=== PATIENT | female | born 1985 | race Caucasian/White ===

== ENCOUNTER 2020-07-21 14:24 | Outpatient (RCR) | payer OTHER, SELFPAY ==
[2020-07-21 14:55] LABS: Hematocrit 38.9 % (37.0-47.0); Hemoglobin 13.5 g/dL (12.0-15.0)
[2020-07-21 15:49] LABS: HIV 1/2 Ab P24 Ag Result Negative (Negative)
[2020-07-21 16:08] LABS: Glucose 1 Hour PP 50gm Dose 110 mg/dL
[2020-07-22] MEDS: RHO(D) IMMUNE GLOBULIN 300 MCG SYRINGE IM (12:43)
[2020-07-24 11:55] LABS: Rapid Plasma Reagin Non-Reactive (NonReactive)
== END 2020-10-19 23:59 | disposition home or self-care (01) ==
LOC: ANHLAB 14:24
PROVIDERS: Visit Provider Obstetrics & Gynecology
DX: Z29.13 Encounter for prophylactic Rho(D) immune globulin (principal); Z11.4 Encounter for screening for human immunodeficiency virus [HIV]; O36.0130 Maternal care for anti-D [Rh] antibodies, third trimester, not applicable or unspecified; Z3A.00 Weeks of gestation of pregnancy not specified
CPT/HCPCS: 36415; 82947; 85014; 85018; 85461; 86592; 86703; 90384; 96372; G0432; J2790

== ENCOUNTER 2020-09-28 01:18 | Inpatient (IN) | payer OTHER, SELFPAY ==
[2020-09-28] VITALS (34 sets, daily range): BP systolic 94–130; BP diastolic 49–96; PULSE 39–265; RESP 16–18; TEMP 36.7–37.2; O2SAT 88–100; BMI 33.9
--- OUTSIDE RECORDS SUMMARY | 2020-09-28 01:36 | XMS_ITS ---
:1985 Author Care Team Providers Name Role Phone Rogelio Conklin Primary Care Provider Unavailable Allergies Code Code System Name Reaction Severity Status Onset NKDA ? Medications Name Status Start Date Stop Date ? ? Afluria Qd (36 mos up)(PF)60 mcg (15 mcg x4)/0.5 mL IM s yringe Active ? Not available ADMINISTER 0.5ML IN THE MUSCLE DIRECTED Marianela 0.35 mg tablet Completed 06/14/2019 09/20/2020 take 1 tablet by oral route every day Macrobid 100 mg capsule Completed 11/23/2018 12/11/19 19 take 1 capsule by oral route every 12 hours with food Metrogel Vaginal 0.75 % Completed 11/09/2018 12/11/19 19 insert 1 applicatorful by vaginal route every night at bedtime for 5 nights Mirena 20 mcg/24 hours (6 yrs) Completed 09/04/2017 1 11/17/2016 52 mg intrauterine device Active ? Not available Problems Name Status Onset Date Source ? Screening for Malignant Neoplasm of Unknown 02/06/2012 History Cervix Removal of Intrauterine Device Unknown 04/08/2012 H istory Insertion of Intrauterine Contraceptive Unknown 04/09/20 12 History Device Specialized Medical Examination Unknown 02/16/2013 History Overweight Active 05/05/2014 History Body Mass Index 30+ - Obesity Active 11/27/2015 Hi story Human Papillomavirus Deoxyribonucleic Active 11/27/2015 History Acid Test Positive, Low Risk on Cervical Specimen SNOMED CT Concept Unknown 09/04/2017 History
--- OUTSIDE RECORDS SUMMARY | 2020-09-28 01:36 | XMS_ITS | Encounter Summary ---
:1985 Author Reason for Visit OB visit Assessment and Plan 1. Routine care Discussion Note: None recorded.Patient educational handouts: No information available. Plan of Care Reminders Provider Appointments Ob Routine 10/05/2020 Kashif Mercado 4:45PM MD [facility] ? Well on or around Alona robertson, Woman-est 02/13/2021 [facility] Lab None ? ? recorded. Referral None ? ? recorded. Procedures None ? ? recorded. Surgeries None ? ? recorded. Imaging None ? ? recorded. Medications Name Start Date ? ? Afluria Qd (36 mos up)(PF)60 mcg (15 mcg x4)/0 .5 mL IM syringe ? ADMINISTER 0.5ML IN THE MUSCLE DIRECTED ? Medications Administered None recorded. Vitals Height Weight BMI Blood Pressure 6 ft 249 lbs 33.8 kg/m2 110/75 mm[Hg] Results Lab Results None recorded. Allergies Code Code System Name Reaction Severity Onset NKDA ? ? ? Problems Name Status Onset Date Source ? Overweight Active 05/05/2014 History Body Mass Index 30+ - Obesity Active 11/27/2015 Hi story Human Papillomavi
--- OUTSIDE RECORDS SUMMARY | 2020-09-28 01:36 | XMS_ITS | Encounter Summary ---
:1985 Author Reason for Visit OB visit Assessment and Plan Assessment Note Patient is ___weeks . Discu ssed plan. 1. Routine care Discussion Note: None recorded.Patient [...] Height Weight BMI Blood Pressure 6 ft 253 lbs 34.3 kg/m2 114/73 mm[Hg] Results Lab Results None recorded. Allergies Code Code System Name Reaction Severity Onset NKDA ? ? ? Problems Name Status Onset Date Source ? Overweight
--- OUTSIDE RECORDS SUMMARY | 2020-09-28 01:37 | XMS_ITS | Encounter Summary ---
:1985 Author Reason for Visit None recorded. Assessment and Plan 1. Small for gestational age fet us ? US, obstetric, follow-up Discussion Note: None recorded.Patient educational handouts: No information available. Plan of Care Reminders Provider Appointments Ob Routine 10/05/2020 Kashif Mercado 4:45PM MD [facility] ? Well on or around Alona robertson, Woman-est 02/13/2021 [facility] Lab None ? ? recorded. Referral None ? ? recorded. Procedures None ? ? recorded. Surgeries None ? ? recorded. Imaging US, 08/14/2020 [place] [facility], Follow-up Medications Name Start Date ? ? Afluria Qd (36 mos up)(PF)60 mcg (15 mcg x4)/0 .5 mL IM syringe ? ADMINISTER 0.5ML IN THE MUSCLE DIRECTED ? Medications Administered None recorded. Vitals None recorded. Results Lab Results None recorded. Allergies Code Code System Name Reaction Severity Onset NKDA ? ? ? Problems Name Status Onset Date Source ? Overweight Active 05/05/2014 History Body Mass Index 30+ - Obesity Active 11/27/2015 Hi story
--- OUTSIDE RECORDS SUMMARY | 2020-09-28 01:37 | XMS_ITS | Encounter Summary ---
:1985 Author Reason for Visit None recorded. Assessment and Plan 1. Poor growth affecting m anagement ? US, obstetric, follow-up Discussion Note: None recorded.Patient educational handouts: No information available. Plan of Care Reminders Provider Appointments Ob Routine 10/05/2020 Kashif Mercado 4:45PM MD [facility] ? Well on or around Alona robertson, Woman-est 02/13/2021 [facility] Lab None ? ? recorded. Referral None ? ? recorded. Procedures None ? ? recorded. Surgeries None ? ? recorded. Imaging US, 07/19/2020 [place] [facility], Follow-up Medications Name Start Date ? [...]
--- OUTSIDE RECORDS SUMMARY | 2020-09-28 01:37 | XMS_ITS | Encounter Summary ---
[...] Pressure 6 ft 249 lbs 33.8 kg/m2 121/76 mm[Hg] Results Lab Results None recorded. Allergies Code Code System Name Reaction Severity Onset NKDA ? ? ? Problems Name Status Onset Date Source ? Overweight
--- OUTSIDE RECORDS SUMMARY | 2020-09-28 01:37 | XMS_ITS | Encounter Summary ---
:1985 Author Reason for Visit OB visit 31wks 2days Assessment and Plan 1. Routine care Discussion [...] Height Weight BMI Blood Pressure 6 ft 246 lbs 33.4 kg/m2 123/81 mm[Hg] Results Lab Results None recorded. Allergies Code Code System Name Reaction Severity Onset NKDA ? ? ? Problems Name Status Onset Date Source ? Overweight Active 05/05/2014 History Body Mass Index 30+ - Obesity Active 11/27/2015
--- OUTSIDE RECORDS SUMMARY | 2020-09-28 01:37 | XMS_ITS | Encounter Summary ---
:1985 Author Reason for Visit OB visit 27wks 4days Assessment and Plan 1. Routine care Discussion [...] Height Weight BMI Blood Pressure 6 ft 240 lbs 32.5 kg/m2 111/72 mm[Hg] Results Lab Results None recorded. Allergies Code Code System Name Reaction Severity Onset NKDA ? ? ? Problems Name Status Onset Date Source ? Overweight Active 05/05/2014 History Body Mass Index 30+ - Obesity Active 11/27/2015
--- OUTSIDE RECORDS SUMMARY | 2020-09-28 01:37 | XMS_ITS | Encounter Summary ---
:1985 Author Reason for Visit OB visit 29wks 4days Assessment and Plan 1. Routine care [...] Height Weight BMI Blood Pressure 6 ft 245 lbs 33.2 kg/m2 109/70 mm[Hg] Results Lab Results None recorded. Allergies Code Code System Name Reaction Severity Onset NKDA ? ? ? Problems Name Status Onset Date Source ? Overweight Active 05/05/2014 History Body Mass Index 30+ - Obesity Active 11/27/2015
--- OUTSIDE RECORDS SUMMARY | 2020-09-28 01:37 | XMS_ITS | Encounter Summary ---
:1985 Author Reason for Visit OB visit 33w3d NILSA 10/14/2020 Assessment and Plan 1. Routine care Discussion [...] Pressure 6 ft 245 lbs 33.2 kg/m2 122/79 mm[Hg] Results Lab Results None recorded. Allergies Code Code System Name Reaction Severity Onset NKDA ? ? ? Problems Name Status Onset Date Source ? Overweight Active 05/05/2014 History Body Mass Index 30+ - Obesity Active 0
--- OUTSIDE RECORDS SUMMARY | 2020-09-28 01:37 | XMS_ITS | Encounter Summary ---
:1985 Author Reason for Visit None recorded. Assessment and Plan 1. Excessive growth affect ing management of mother ? US, obstetric, follow-up Discussion Note: None recorded.Patient educational handouts: No information available. Plan of Care Reminders Provider Appointments Ob Routine 10/05/2020 Kashif Mercado 4:45PM MD [facility] ? Well on or around Alona robertson, Woman-est 02/13/2021 CN[facility] Lab None ? ? recorded. Referral None ? ? recorded. Procedures None ? ? recorded. Surgeries None ? ? recorded. Imaging US, 09/11/2020 [place] [facility], Follow-up Medications Name Start Date ? [...]
[2020-09-28] MEDS: LACTATED RINGERS 1,000 ML 125 ML IV CONT (01:40)
--- NOTE | 2020-09-28 01:44 | WPDANESEPP ---
Anes - Eval Pre Procedure Procedure: labor epidural Date/Time: 09/28/20 01:44 Surgeon: anish Preop Diagnosis: pain during labor Pre Op Diagnosis: CTX Patient Data Age: 35 Gender: F Height: Weight: Last Vital Signs Pulse 91 09/28/20 01:41 BP 123/75 09/28/20 01:41 Allergies Allergy/AdvReac Type Severity Reaction Status Date / Time No Known Allergies Allergy Unverified 05/06/19 12:35 Home Medications Medication Instructions Recorded Confirmed Type PNV cmb#95-ferrous fumarate-FA 1 tablet PO DAILY 09/15/20 09/15/20 History [] Patient hx anesthesia problems: none Family hx anesthesia problems: none PMFSH Past Medical History Medical History (Updated 09/28/20 @ 01:45 by Marla Tang CRNA) IUP (intrauterine ), incidental Family History Family History (Updated 09/15/20 @ 15:36 by Vince Smyth RN) Father Hyperlipemia Social History Social History Substance use: never Gender identity (if verbalized by the patient): Female Spiritual care concerns: No Exam Day of Procedure 09/28/20 01:44
[2020-09-28 01:54] LABS: Basophils Percent Auto 0.2 % (0.2-1.2); Eosinophils Percent Auto 0.3 % (0-4.4); Hematocrit 37.2 % (37.0-47.0); Hemoglobin 12.8 g/dL (12.0-15.0); Immature Granulocyte Absolute 0.06 K/mm3 (0.00-0.031); Immature Granulocyte Percent A 0.6 % (0-0.5); Lymphocytes Absolute Auto 1.71 K/mm3 (0.9-3.2); Lymphocytes Percent Auto 15.9 % (18.3-44.2); Mean Corpuscular HGB Conc 34.4 g/dl (32-36); Mean Corpuscular Hemoglobin 28.9 pg (26-34); Mean Platelet Volume 11.5 fl (7.4-10.4); Monocytes Absolute Auto 0.6 K/mm3 (0.1-0.6); Monocytes Percent Auto 5.8 % (2.6-8.5); Neutrophils Absolute Auto 8.3 K/mm3 (1.3-6.7); Neutrophils Percent Auto 77.2 % (45.5-73.1); Platelet Count Result 188 k/mm3 (150-375); Red Blood Count 4.43 M/mm3 (4.2-5.4); White Blood Count 10.7 K/mm3 (4.5-10.0)
[2020-09-28] MEDS: OXYTOCIN 30 UNITS/NS 500 ML 30 UNITS/500 ML BAG 999 UNITS IV CONT (02:15)
[2020-09-28] MEDS: OXYTOCIN 30 UNITS/NS 500 ML 30 UNITS/500 ML BAG 125 UNITS IV CONT (02:15)
--- NOTE | 2020-09-28 02:20 | P.HP_ITS ---
Obstetrics - Admit Note Admission Note: record reviewed. No pertinent additions to the history and/or any subsequent changes in the physical findings that are not consistent with the expected course of the were found.Pt arrived in active labor Additions to the history and/or subsequent changes in the physical findings rodney beck. None.
--- NOTE | 2020-09-28 02:20 | PM.OBPRVD ---
OB - Delivery Note Procedure Delivery date: 09/28/20 Procedure: vaginal delivery Intrapartal events: Precipitous Labor < 3 hours Delivery augmentation: rupture of membranes Delivery monitor: external FHT Route of delivery: Laceration Description: None Specimen: No Quantitative Blood Loss (ml): 117 Anesthesia type: Epidural Disposition: other () [place] Baby Date of : 09/28/20 Time of : 02:10 Weeks of gestation at delivery: 37 Infant gender: Male Weight (pounds): 7 Weight (ounces): 1 presentation: vertex position: Right Occiput Posterior Placenta delivery description: Spontaneous cord vessel description: 3 Vessels and Clamped/Cut score one minute: 8 score five minutes: 8 Narrative: mother and baby in stable condition
--- NOTE | 2020-09-28 03:53 | LDADM ---
This patient, Amanda Figueroa, was admitted to Labor/Delivery/Recovery 106 on 09/28/20 at 01:18. Plans for labor, pain management and were discussed with patient. Patient/family oriented to hospital policies and general routines including ID bracelet, bed and alarms, visiting hours, pain management, procedures, bathroom and other care routines, personal items, smoking policy, room service/diet and guest tray routines, infant security routines, and visiting hours. Patient/Family are encouraged to report perceived risks to care and to ask questions if they do not understand what they are told or what they should do. See OBIX for further documentation.
[2020-09-28] MEDS: WITCH HAZEL 40 PADS 1 PAD TOPICAL (04:52)
[2020-09-28] MEDS: BENZOCAINE 20% AER SPR (*SP) 56 GM CAN 1 SPRAY TOPICAL (04:52)
--- NOTE | 2020-09-28 09:29 | WPDANLDPN2 ---
Anes-Prog Note L&D Date/Time: 09/28/20 09:29 Comfortable throughout: labor and delivery Epidural/Spinal procedure site: clean & non-tender Neuro status: Neuro function grossly intact. Cardiovascular status: normal Respiratory status: normal Airway patency: baseline Mental status: baseline Post-Op hydration status: normal Vital Signs: Last Vital Signs Temp 36.7 C 09/28/20 05:18 Pulse 78 09/28/20 05:18 Resp 16 09/28/20 05:18 BP 126/63 09/28/20 05:18 Pulse Ox 100 09/28/20 02:06 Pain score (VAS): 0 I/O: Intake & Output 09/27/20 09/28/20 09/28/20 23:59 07:59 15:59 Intake Total 500 Output Total 316 Balance 184 Post-procedural complaints: none Patient feedback: Patient satisfied with anesthetic care.
[2020-09-28] MEDS: MULTIVIT/MIN/PREN/FOL AC/IRON TABLET 1 TAB PO (10:19)
[2020-09-28 11:13] LABS: Rapid Plasma Reagin Non-Reactive (NonReactive)
--- NOTE | 2020-09-28 17:07 | PC.NURSE ---
Consulted with patient, reviewed feeding cues, frequencies, duration of feedings, feeding elimination flow sheet, and signs of adequate intake. Demonstrated stimulation techniques to wake for feeding. Assisted with to breast. Reviewed positioning/alignment, holding breast and asymmetrical latch on. was unable to latch correctly and maintain latch. infant was sleepy at the breast. Reviewed signs of a correct latch, effective nursing and suck swallow ratio. Instructed mother to call out for RN assistance if she is unable to latch for feeding or she has discomfort with nursing. Instructed feeding should be initiated three hours from start of last feeding or if feeding cues are noted before. Mother voiced understanding of information shared. Breast pump provided due to not effectively . Instructions given on breast pump care and usage, pumping schedule, nipple care, and collection and storage of breast milk. Encouraged [id number], breast massage and manual expression to stimulate supply. Assessed patient for correct flange size, placement and draw. Patient verbalizes and demonstrates understanding of instructions.
[2020-09-28] MEDS: IBUPROFEN 600 MG TABLET PO (21:16)
[2020-09-29 05:30] LABS: Hematocrit 33.9 % (37.0-47.0); Hemoglobin 11.7 g/dL (12.0-15.0)
[2020-09-29] MEDS: IBUPROFEN 600 MG TABLET PO (07:40)
[2020-09-29] MEDS: DOCUSATE SODIUM 100 MG CAPSULE PO ×2 (07:40→17:10)
[2020-09-29] MEDS: WITCH HAZEL 40 PADS 1 PAD TOPICAL ×2 (07:42→17:10)
[2020-09-29] MEDS: BENZOCAINE 20% AER SPR (*SP) 56 GM CAN 1 SPRAY TOPICAL ×2 (07:42→17:10)
[2020-09-29 08:00] VITALS: BP 111/45; PULSE 76; RESP 18; TEMP 36.5
[2020-09-29] MEDS: LANOLIN (LANSINOH) 7.5 GM CREAM 1 APPLIC TOPICAL (08:03)
--- NOTE | 2020-09-29 10:19 | P.PNOB_ITS ---
OB - PN: Subj Subjective Date/time seen: 09/29/20 10:19 Patient comments: no complaints baby status: doing well and nursing well [place] feeding status: exclusively breast feeding Narrative: EAV, pain minimal. may want DC later today. CIrc desired. OB - PN: Obj Data Labs CBC & Chem 7: 09/29/20 05:09 Labs: Laboratory Results - last 24 hr 09/28/20 09/29/20 01:45 05:09 Hgb 11.7 L Hct 33.9 L RPR Non-reactive OB - PN A/P Plan day: 1 Plan: routine care Comments: DC home if pt desires. DC intructions given. FU 4 weeks or prn Time Spent With Patient Time: Total time spent is greater than 50% in coordination of care (as documented) at patient's floor/unit and/or counseling patient: Time with patient: less than 15 minutes Exam Narrative: Exam Narrative: NAD abdomen soft, nontender, fundus firm below the umbilicus Extremities nontender, 1+ edema
--- NOTE | 2020-09-29 10:25 | PM.OBDSVD ---
DS: Admitting Diagnosis Admitting Diagnosis Admitting Diagnosis: labor DS: Discharge Diagnosis Discharge Diagnosis (1) Term delivered: Code(s): O80 - Encounter for full-term uncomplicated delivery Status: Acute OB - DS: Summary OB Procedures : None OB Procedures Intrapartum: Spontaneous Vag Delivery OB Procedures: : None Peripartum Data Infant Delivery Method: Natural Vaginal complications: none Status at Discharge Functional status at discharge: independent ambulation Time Spent with Patient Time attestation: Total time spent providing and/or coordinating discharge services: Time spent: Less than 30 minutes Exam Narrative: Exam Narrative: NAD abdomen soft, appropriately tender Ext non tender, 1+ edema DS: Data Data Completed and Pending Labs on day of discharge: Labs from last 24 hours 09/29/20 09/28/20 05:09 01:45 Hgb 11.7 L Hct 33.9 L RPR Non-reactive Discharge Plan Discharge Attending physician on discharge: Clarisa Short Discharging Clinician: Clarisa Short Anticipated Discharge Date/Time: 09/29/20 16:00 Patient Disposition: Home, Self-Care Activity: may shower and pelvic rest Diet: as tolerated Discharge Instructions: FU 4 weeks pelvic rest for 6 weeks Patient Instructions: Antibiotic Form Stand Alone Forms: General Discharge Information Follow-up/Referrals: Eddie Conklin MD [Physician] - (4 weeks) Discharge Medications: Continued PNV cmb#95-ferrous fumarate-FA [] 28 mg iron- 800 mcg Tablet 1 tablet PO DAILY RF: 0 Date of admission: 09/28/20 01:18 Primary Care Provider: PHYSICIAN,LETTER OF CREDIT DOCUMENT EXAMINER Admitting Provider: Eddie Conklin Attending physician on admission: Eddie Conklin Condition: Stable
--- NOTE | 2020-09-29 10:37 | WPDANLDPN2 ---
Anes-Prog Note L&D Date/Time: 09/29/20 10:37 Comfortable throughout: labor and delivery Epidural/Spinal procedure site: clean & non-tender Neuro status: Neuro function grossly intact. Cardiovascular status: normal Respiratory status: normal Airway patency: baseline Mental status: baseline Post-Op hydration status: normal Vital Signs: Last Vital Signs Temp 36.5 C 09/29/20 08:00 Pulse 76 09/29/20 08:00 Resp 18 09/29/20 08:00 BP 111/45 L 09/29/20 08:00 Pulse Ox 99 09/28/20 23:11 Pain score (VAS): 0 Post-procedural complaints: none Patient feedback: Patient satisfied with anesthetic care.
[2020-09-29] MEDS: POLYSACCHARIDE IRON COMPLEX 150 MG CAPSULE PO (17:10)
[2020-09-29 19:20] VITALS: BP 120/77; PULSE 75; RESP 14; TEMP 36.9
[2020-09-30] MEDS: MULTIVIT/MIN/PREN/FOL AC/IRON TABLET 1 TAB PO (08:03)
[2020-09-30] MEDS: DOCUSATE SODIUM 100 MG CAPSULE PO (08:03)
[2020-09-30 08:09] VITALS: BP 118/71; PULSE 80; RESP 18; TEMP 36.6
[2020-10-02 09:08] VITALS: BP 130/69; PULSE 94; RESP 14; TEMP 36.9
== END 2020-09-30 18:45 | disposition home or self-care (01) | DRG 807 ==
LOC: ANHLDR 01:44 → ANHOB2 09-29 10:25 → ANHLDR 10-03 13:07 → ANHOB2 10-03 13:07
PROVIDERS: Advanced Practice Midwife; Admitting Provider Obstetrics & Gynecology; Visit Provider Obstetrics & Gynecology
DX: O62.3 Precipitate labor (principal); Z37.0 Single live birth; Z3A.37 37 weeks gestation of pregnancy
CPT/HCPCS: 36415; 85014; 85018; 85025; 86592; 86850; 86880; 86900; 86901; 86902; A9270; J2590; J2795; J7120

== ENCOUNTER 2023-08-08 09:09 | Outpatient (RCR) | payer OTHER, SELFPAY ==
[2023-08-08 10:45] LABS: Hematocrit 37.3 % (37.0-47.0); Hemoglobin 12.6 g/dL (12.0-15.0)
[2023-08-08 11:03] LABS: Glucose 1 Hour PP 50gm Dose 148 mg/dL
[2023-08-08 12:10] LABS: HIV 1/2 Ab P24 Ag Result Negative (Negative)
[2023-08-08] MEDS: RHO(D) IMMUNE GLOBULIN 300 MCG/2 ML SYRINGE IM (15:19)
== END 2023-11-06 23:59 | disposition home or self-care (01) ==
LOC: ANHLAB 09:09
PROVIDERS: Visit Provider Obstetrics & Gynecology
DX: Z11.4 Encounter for screening for human immunodeficiency virus [HIV] (principal); Z29.13 Encounter for prophylactic Rho(D) immune globulin; O36.0130 Maternal care for anti-D [Rh] antibodies, third trimester, not applicable or unspecified; Z3A.00 Weeks of gestation of pregnancy not specified
CPT/HCPCS: 36415; 82947; 85014; 85018; 85461; 86703; 86850; 86900; 86901; 90384; 96372; G0432; J2790

== ENCOUNTER 2023-11-02 01:43 | Inpatient (IN) | payer OTHER, SELFPAY ==
[2023-11-02] VITALS (90 sets, daily range): BP systolic 100–154; BP diastolic 51–102; PULSE 60–205; RESP 14–18; TEMP 36.6–36.9; O2SAT 90–100
--- NOTE | 2023-11-02 01:43 | LDADM ---
This patient, Amanda Figueroa, was admitted to Labor/Delivery/Recovery 106 on 11/02/23 at 01:43. Plans for labor, pain management and were discussed with patient. Patient/family oriented to hospital policies and general routines including ID bracelet, bed and alarms, visiting hours, pain management, procedures, bathroom and other care routines, personal items, smoking policy, room service/diet and guest tray routines, infant security routines, and visiting hours. Patient/Family are encouraged to report perceived risks to care and to ask questions if they do not understand what they are told or what they should do. See OBIX for further documentation.
[2023-11-02] MEDS: LACTATED RINGERS 1,000 ML 125 ML IV CONT ×2 (02:00→02:56)
[2023-11-02 02:09] LABS: Basophils Percent Auto 0.2 % (0.2-1.2); Eosinophils Percent Auto 0.5 % (0-4.4); Hematocrit 37.6 % (37.0-47.0); Hemoglobin 12.4 g/dL (12.0-15.0); Immature Granulocyte Absolute 0.03 K/mm3 (0.00-0.031); Immature Granulocyte Percent A 0.4 % (0-0.5); Lymphocytes Absolute Auto 1.87 K/mm3 (0.9-3.2); Lymphocytes Percent Auto 23.1 % (18.3-44.2); Mean Corpuscular Hemoglobin 27.7 pg (26-34); Mean Corpuscular Volume 84.1 fl (80-100); Mean Platelet Volume 12.5 fl (7.4-10.4); Monocytes Absolute Auto 0.5 K/mm3 (0.1-0.6); Monocytes Percent Auto 6.2 % (2.6-8.5); Neutrophils Absolute Auto 5.6 K/mm3 (1.3-6.7); Neutrophils Percent Auto 69.6 % (45.5-73.1); Platelet Count Result 190 k/mm3 (150-375); Red Blood Count 4.47 M/mm3 (4.2-5.4); Red Cell Distribution Width 13.2 % (11.5-14.5); White Blood Count 8.1 K/mm3 (4.5-10.0)
--- NOTE | 2023-11-02 02:28 | WPDANESEPP ---
Anes - Eval Pre Procedure Procedure: Labor epidural Date/Time: 11/02/23 02:28 Preop Diagnosis: Abdominal pain with contractions Pre Op Diagnosis: SROM Patient Data Age: 38 Gender: F Height: 1.83 m Weight: 130 kg Last Vital Signs Pulse 98 11/02/23 02:16 BP 146/84 H 11/02/23 02:16 O2 Del Method Room Air 11/02/23 02:11 Allergies Allergy/AdvReac Type Severity Reaction Status Date / Time No Known Allergies Allergy Verified 10/07/23 15:28 Home Medications Medication Instructions Recorded Confirmed Type vit no.95-ferrous 1 tablet PO DAILY 09/15/20 11/02/23 History fumarate 28 mg-folic acid 800 mcg tablet () Laboratory Tests 11/02/23 01:59 WBC 8.1 K/mm3 (4.5-10.0) RBC 4.47 M/mm3 (4.2-5.4) Hgb 12.4 g/dL (12.0-15.0) Hct 37.6 % (37.0-47.0) MCV 84.1 fl (80-100) MCH 27.7 pg (26-34) MCHC 33.0 g/dl (32-36) RDW 13.2 % (11.5-14.5) Plt Count 190 k/mm3 (150-375) MPV 12.5 H fl (7.4-10.4) Immature Gran % (Auto) 0.4 % (0-0.5) Neut % (Auto) 69.6 % (45.5-73.1) Lymph % (Auto) 23.1 % (18.3-44.2) [place] % (Auto) 6.2 % (2.6-8.5) Eos % (Auto) 0.5 % (0-4.4) Baso % (Auto) 0.2 % (0.2-1.2) Lymph # (Auto) 1.87 K/mm3 (0.9-3.2) [place] # (Auto) 0.5 K/mm3 (0.1-0.6) Eos # (Auto) 0.0 K/mm3 (0-0.3) Baso # (Auto) 0.0 K/mm3 (0.0-0.1) Abs Immat Gran (auto) 0.03 K/mm3 (0.00-0.031) Absolute Neuts (auto) 5.6 K/mm3 (1.3-6.7) Absolute Nucleated RBC 0.0 K/mm3 (0.0-0.012) Nucleated RBC % 0.0 % (0.0-0.2) RPR Pending : gestational age HCG: positive Patient hx anesthesia problems: none Family hx anesthesia problems: none Results Review: All pre-operative results and documents have been reviewed as part of the pre-operative evaluation. PMFSH Past Medical History Medical History IUP (intrauterine ), incidental Obesity Family History Family History Father Hyperlipemia Social History Social History Smoking status: Never smoker Substance use: never Do You Feel Safe in your Home?: Yes Lack of Transportation: No Lack of Food: Never True Current Housing: I Have Housing Concerned About Future Housing: No Difficulty Paying Gas/Electric Bills: No Difficulty Paying for Meds: No Currently Unemployed: No Education: Bachelor's Degree Difficulty w/ Childcare or Family Care: No Gender identity (if verbalized by the patient): Female Spiritual care concerns: No Exam Day of Procedure 11/02/23 02:28 Patient weight: morbidly obese Heart: regular rate and rhythm Lungs: clear to auscultation Airway: Mallampati scale class II
[2023-11-02] MEDS: OXYTOCIN 30 UNITS/NS 500 ML 30 UNITS/500 ML BAG 999 UNITS IV CONT (06:10)
[2023-11-02] MEDS: OXYTOCIN 30 UNITS/NS 500 ML 30 UNITS/500 ML BAG 125 UNITS IV CONT (06:28)
--- NOTE | 2023-11-02 06:47 | P.PCNOB_ITS ---
OB - Vaginal Delivery Note Procedure Delivery date: 11/02/23 Delivery monitor: External FHT and External Uterine Route of delivery: Episiotomy description: None Laceration Description: None Quantitative Blood Loss (ml): 80 Anesthesia type: Epidural Disposition: Floor Complications: No immediate complications [place] Baby Date of : 11/02/23 Time of : 06:07 Weeks of gestation at delivery: 40 presentation: vertex Placenta delivery description: Spontaneous Cord Vessel Description: 3 Vessels score one minute: 8 score five minutes: 9
--- NOTE | 2023-11-02 06:47 | WPDHPUPDATE1 ---
History and Physical Update Update Date/Time: 11/02/23 06:47 addendum- ERROR - note placed in the wrong chart History and Physical has been reviewed, including an updated exam of the patient. There are NO changes in the patient's condition. Risks, benefits, and alternatives have been discussed and questions answered. Patient agrees to proceed with procedure.
[2023-11-02] MEDS: IBUPROFEN 600 MG TABLET PO ×2 (10:45→18:44)
[2023-11-02] MEDS: LANOLIN (LANSINOH) 7.5 GM CREAM 1 APPLIC TOPICAL (10:45)
[2023-11-02] MEDS: MULTIVIT/MIN/PREN/FOL AC/IRON TABLET 1 TAB PO (10:45)
[2023-11-02] MEDS: DOCUSATE SODIUM 100 MG CAPSULE PO (10:45)
[2023-11-02] MEDS: WITCH HAZEL 40 PADS 1 PAD TOPICAL (10:45)
[2023-11-03 00:02] VITALS: BP 133/78; PULSE 73; RESP 16; TEMP 36.8; O2SAT 97
[2023-11-03 04:00] VITALS: BP 123/73; PULSE 78; RESP 16; TEMP 36.6; O2SAT 98
[2023-11-03 04:09] LABS: Hematocrit 34.9 % (37.0-47.0); Hemoglobin 11.4 g/dL (12.0-15.0)
--- NOTE | 2023-11-03 07:46 | WPDANLDPN2 ---
Anes-Prog Note L&D Date/Time: 11/03/23 07:46 Comfortable throughout: labor and delivery Neuraxial method: epidural Epidural/Spinal procedure site: clean & non-tender Neuro status: Neuro function grossly intact. Cardiovascular status: normal Respiratory status: normal Airway patency: baseline Mental status: baseline Post-Op hydration status: normal Vital Signs: Last Vital Signs Temp 97.9 F 11/03/23 04:00 Pulse 78 11/03/23 04:00 Resp 16 11/03/23 04:00 BP 123/73 11/03/23 04:00 Pulse Ox 98 11/03/23 04:00 O2 Del Method Room Air 11/02/23 02:11 Pain score (VAS): 0 I/O: Intake & Output 11/02/23 11/02/23 11/03/23 15:59 23:59 07:59 Output Total 400 Balance -400 Post-procedural complaints: none Patient feedback: Patient satisfied with anesthetic care.
[2023-11-03 08:00] VITALS: BP 123/65; PULSE 64; RESP 16; TEMP 36.9; O2SAT 98
[2023-11-03] MEDS: MULTIVIT/MIN/PREN/FOL AC/IRON TABLET 1 TAB PO (08:04)
--- NOTE | 2023-11-03 08:28 | PM.OBPNVD ---
OB - PN: Subj Subjective Date/time seen: 11/03/23 08:28 Patient comments: no complaints, pain well controlled, incisional pain, tolerating diet and flatus present OB - PN: Obj Data Labs 11/03/23 03:45 Labs: Laboratory Results - last 24 hr 11/03/23 03:45 Hgb 11.4 L Hct 34.9 L OB - PN A/P Plan day: 1 Plan: routine care Comments: No problems, routine care Time Spent With Patient Time: Total time spent is greater than 50% in coordination of care (as documented) at patient's floor/unit and/or counseling patient: Exam Const: General: comfortable, no acute distress and alert Resp: Effort & Inspection: normal respiratory effort Auscultation: no crackles, no rales and no rhonchi Cardio: Rate: regular rate Heart sounds: no click, no murmurs and no rubs GI: Inspection: non-distended GI Palp: No Tenderness to palpation present (GI) Auscultation: normal bowel sounds Other: Incision - CDI Extrem: General: normal to inspection, no pedal edema and no calf tenderness
--- NOTE | 2023-11-03 10:24 | PC.NURSE ---
Patient viewed the discharge video Mother & Baby Care, The First Two Weeks . Patient was given the opportunity and encouraged to ask questions. Patient verbalized understanding of information shared and has been given the mother/baby guide for home reference.
[2023-11-03 13:41] LABS: Rapid Plasma Reagin Non-Reactive (NonReactive)
--- NOTE | 2023-11-03 15:49 | PC.NURSE ---
1530 - Introductions were made, then consulted with patient to assess needs related to . Discussed with mother her?plans to feed?her infant, the?experience so far she believes is going well, and her successful history of her older children for 1 year each. Reviewed signs of a good latch and good intake for the with what we assess for. Resources provided for inpatient with name written on the communication board. Mother voiced understanding of information and LC will check in tomorrow before discharge. Reported to the Primary RN.
[2023-11-03 19:30] VITALS: BP 122/60; PULSE 84; RESP 16; TEMP 36.9; O2SAT 99
[2023-11-04 07:55] VITALS: BP 130/75; PULSE 74; RESP 16; TEMP 37.3; O2SAT 98
[2023-11-04] MEDS: MULTIVIT/MIN/PREN/FOL AC/IRON TABLET 1 TAB PO (08:21)
--- NOTE | 2023-11-04 10:50 | PM.OBPNVD ---
OB - PN: Subj Subjective Date/time seen: 11/04/23 10:50 Patient comments: no complaints, pain well controlled and tolerating diet OB - PN: Obj Data Labs 11/03/23 03:45 Labs: Laboratory Results - last 24 hr 11/02/23 01:59 RPR Non-reactive OB - PN A/P Plan day: 2 Plan: routine care and discharge home Time Spent With Patient Time: Total time spent is greater than 50% in coordination of care (as documented) at patient's floor/unit and/or counseling patient: Exam Const: General: comfortable and no acute distress Resp: Effort & Inspection: normal respiratory effort Auscultation: no rales, no rhonchi and no wheezes Cardio: Rate: regular rate Heart sounds: no click, no murmurs and no rubs GI: GI Palp: Yes Soft to palpation and No Tenderness to palpation present (GI) Auscultation: normal bowel sounds Extrem: General: normal to inspection, no pedal edema and no calf tenderness
--- NOTE | 2023-11-04 10:51 | PM.OBDSVD ---
DS: Admitting Diagnosis Discharge Date November 04/2020 Admitting Diagnosis term , labor DS: Discharge Diagnosis Discharge Diagnosis (1) Term delivered: Code(s): O80 - Encounter for full-term uncomplicated delivery Status: Acute OB - DS: Summary OB Procedures : None OB Procedures Intrapartum: Spontaneous Vag Delivery OB Procedures: : None Peripartum Data Laceration Description: None Episiotomy description: None Time Spent with Patient Time attestation: Total time spent providing and/or coordinating discharge services: DS: Data Data Completed and Pending Labs on day of discharge: Labs from last 24 hours 11/02/23 01:59 RPR Non-reactive Discharge Plan Discharge Discharging Clinician: Eddie Conklin Patient Disposition: Home, Self-Care Activity: pelvic rest Diet: regular Discharge Instructions: Education: Mom and Baby Guide Given to: Mother Follow-Up: Call your delivering provider's office for an appointment to be seen in: 6 Weeks Mom and baby should come to the [facility] for the follow-up appointment. Appointment Date/Time: November 05, 2023 at 11:00 am What to expect at your follow-up visit: Physical Assessment Call [phone] if you are unable to keep your appointment time. BREAST CARE: * Wear a snug supportive bra. * For engorgement discomfort: Breast Feeding: * Apply warm moist washcloths * Express milk as needed to relieve engorgement * Wear loose clothing * For sore nipples: * Identify correct latch-on * Apply warm moist washcloths before and after nursing * Air dry nipples after nursing * May apply Lansinoh cream to nipples EPISIOTOMY/PERINEAL CARE: * Until bleeding stops, use your tony bottle after urinating * Change your pad frequently throughout the day * No tub baths until seen by your physician - You may shower ACTIVITY: * Rest as much as possible. * Do not exercise or lift anything heavier than your baby (such as laundry or other children.) * Avoid stairs or driving as much as possible. * Do not put anything into the vagina. No douching, tampons, or sexual activity until seen by physician. NOTIFY PHYSICIAN IF YOU HAVE ANY QUESTIONS OR IF ANY OF THE FOLLOWING SYMPTOMS OCCUR: * If your perineum becomes red, swollen, or more painful than what you have experienced in the hospital. * If your vaginal bleeding becomes foul smelling. * If your vaginal bleeding becomes more heavy than a period or if your bleeding changes from pink to bright red. However, you may pass an occasional walnut-sized clot once or twice for the first week . * If you experience a sharp, shooting pain in you calves. * If you discover a hard, reddened area on your breast or if you experience flu-like symptoms. DIET: * Eat regular, well-balanced meals. * Drink plenty of fluids daily. If , drink to thirst. Patient Instructions: Antibiotic Form Stand Alone Forms: General Discharge Information Follow-up/Referrals: Eddie Conklin MD [Physician] - Discharge Medications: Continued PNV [id number] [] 28 mg iron- 800 mcg Tablet 1 tablet PO DAILY Date of admission: 11/02/23 01:43 Primary Care Provider: PHYSICIAN,LOCATION MANAGER Admitting Provider: Eddie Conklin Attending physician on admission: Eddie Conklin Condition: Stable
[2023-11-05 11:10] VITALS: BP 127/89; PULSE 88; RESP 18; TEMP 36.8; O2SAT 97
== END 2023-11-04 11:55 | disposition home or self-care (01) | DRG 807 ==
LOC: ANHLDR 03:17 → ANHOB2 09:54
PROVIDERS: Admitting Provider Obstetrics & Gynecology; Visit Provider Obstetrics & Gynecology
DX: O80 Encounter for full-term uncomplicated delivery (principal); Z37.0 Single live birth; Z3A.40 40 weeks gestation of pregnancy
CPT/HCPCS: 36415; 85014; 85018; 85025; 86592; 86850; 86900; 86901; A9270; J2590; J2795; J7120